=== PATIENT | male | born 1950 | race Caucasian/White ===

== ENCOUNTER 2017-08-04 18:37 | Observation (INO) ==
[2017-08-04 21:17] LABS: Basophils # 0.1 K/mcL (0.0-0.2); Basophils % 0.9 %; Eosinophils # 0.3 K/mcL (0.0-0.6); Eosinophils % 3.3 %; Hematocrit 41.9 % (37.5-50.1); Hemoglobin 14.3 g/dL (12.9-16.9); Immature Granulocytes % 0.6 % (0-4); Lymphocytes # 2.9 K/mcL (0.6-4.6); Lymphocytes % 33.9 %; Mean Corpuscular HGB Conc 34.1 g/dL (31.6-35.5); Mean Corpuscular Volume 87.8 fL (83.0-100.0); Mean Platelet Volume 9.6 fL (9.4-12.4); Monocytes # 0.7 K/mcL (0.0-1.3); Monocytes % 7.6 %; Neutrophils # 4.6 K/mcL (1.6-8.9); Platelet Count 184 K/mcL (140-400); Red Blood Count 4.77 M/mcL (4.19-5.50); Red Cell Distribution Width 13.2 % (11.5-14.5); Segmented Neutrophils % 53.7 %
[2017-08-04 21:30] LABS: BUN/Creatinine Ratio 15 (6-26); Blood Urea Nitrogen 13 mg/dL (8-26); Calcium 9.3 mg/dL (8.6-10.8); Carbon Dioxide 25 mEq/L (19-29); Chloride 106 mEq/L (98-109); Glucose 105 mg/dL (70-99); Osmolality,Calculated 286 (280-300); Potassium 4.4 mEq/L (3.5-4.5); Sodium 138 mEq/L (136-145); eGFR For African Americans > 60 (> 60); eGFR For Non-African Americans > 60 (> 60)
--- NOTE | 2017-08-04 22:27 | Emergency Department Note ---
Disposition Clinical Impression: GI bleeding Qualifiers: GI bleed type/associated pathology: unspecified gastrointestinal hemorrhage type Qualified Code(s): K92.2 - Gastrointestinal hemorrhage, unspecified Disposition: Admitted As Inpatient Condition: Good Time of Disposition: 22:29 General Adult HPI - General Chief complaint: ED GI Bleed Stated complaint: rectal bleeding Time Seen by Provider: 08/04/17 21:04 Source: patient Mode of arrival: ambulatory Limitations: no limitations Nursing Notes Reviewed: Yes Vital Signs Reviewed: Yes - History of Present Illness HPI Narrative: 67-year-old male presenting to the emergency department with chief complaint 3 episodes of bloody bowel movements. Patient states he also is feeling slightly weak and lightheaded earlier. Patient denies passing out or having any chest pain or shortness breath. Patient had a colonoscopy yesterday by Dr. Garcia and had a polyp removed. He states he called the physician's office earlier today and stated he had one episode of a bloody bowel movement. He was told if he had any more episodes that come to the emergency department. Patient denies having any other medical history. Patient denies any abdominal pain. Pain Scale: 0 - Related Data Home Medications Medication Instructions Recorded Confirmed Artichoke Leaves 500 mg PO DAILY 08/04/17 08/04/17 Ascorbate Calcium [Vitamin C] 2,000 mg PO DAILY 08/04/17 08/04/17 Aspirin [Lo-Dose Aspirin EC] 81 mg PO DAILY 08/04/17 08/04/17 Bilberry Fruit Extract [Bilberry] 60 mg PO DAILY 08/04/17 08/04/17 C/Sourcherry/Celery/Grape Seed 500 mg PO DAILY 08/04/17 08/04/17 [Tart Lujan Capsule] Cholecalciferol (Vitamin D3) 1,000 unit PO DAILY 08/04/17 08/04/17 [Vitamin D] Cinnamon Bark [Cinnamon] 375 mg PO DAILY 08/04/17 08/04/17 Fexofenadine HCl [Allergy Relief] 180 mg PO DAILY 08/04/17 08/04/17 Fish Oil/Dha/Epa [Fish Oil 1,200 1,200 mg PO DAILY 08/04/17 08/04/17 mg Fish Oil] Garlic 3,000 mg PO DAILY 08/04/17 08/04/17 Glucosamine/Chondro Mckeon A 1 tab PO DAILY 08/04/17 08/04/17 [Glucosamine-Chondroit Cplt] Grape Seed Xt/Bioflavon,[place] 50 mg PO DAILY 08/04/17 08/04/17 [Grape Seed 50 mg Capsule] Lactobacillus Acidophilus 1 mg PO DAILY 08/04/17 08/04/17 [Acidophilus Probiotic] Methylsulfonylmethane [MSM] 500 mg PO DAILY 08/04/17 08/04/17 Milk Thistle 250 mg PO DAILY 08/04/17 08/04/17 Niacin [Plain Niacin] 500 mg PO DAILY 08/04/17 08/04/17 Plant Stanol Ladonna [Cholest Off] 900 mg PO DAILY 08/04/17 08/04/17 Prasterone (Dhea) [Dhea] 25 mg PO DAILY 08/04/17 08/04/17 Ranitidine HCl [Acid Motor Mechanic] 75 mg PO DAILY 08/04/17 08/04/17 Turmeric Root Extract [Turmeric] 720 mg PO DAILY 08/04/17 08/04/17 Ubidecarenone [Coq10] 30 mg PO DAILY 08/04/17 08/04/17 Vitamin E 400 unit PO DAILY 08/04/17 08/04/17 Allergies Allergy/AdvReac Type Severity Reaction Status Date / Time No Known Allergies Allergy Verified 08/04/17 22:21 All systems ED: reviewed and negative except as stated. Constitutional: Denies: fever, chills Eyes: Reports: as per HPI ENT ED: Reports: as per HPI Cardiovascular: Denies: chest pain, palpitations Respiratory: Denies: cough, dyspnea, wheezes Gastrointestinal: Denies: abdominal pain, nausea, vomiting Genitourinary: Reports: as per HPI Musculoskeletal: Reports: as per HPI Integumentary: Denies: rash, abrasion Neurological: Reports: weakness. Denies: numbness, paresthesias Psychiatric: Reports: as per HPI Endocrine: Reports: as per HPI Hematological/Lymphatic: Reports: as per HPI Allergic/Immunologic: Reports: as per HPI Past Medical History - Past Medical History Attestation: Yes The following information was validated with the patient. Medical history: Reports: cancer, hyperlipidemia Surgical history: Reports: appendectomy Psychiatric history: Reports: no psych history - Social History Smoking Status: Never smoker Alcohol use: Reports: none Drug use: Reports: none Physical Exam - General Limitations: no limitations General appearance: alert, in no apparent distress - Head Head exam: atraumatic, normocephalic, normal inspection - Eye Eye exam: Present: normal appearance. Absent: scleral icterus, conjunctival injection - Chest Chest inspection: Present: normal inspection, symmetric chest wall rise. Absent : tenderness, rash - Respiratory Respiratory exam: Present: normal lung sounds bilaterally. Absent: respiratory distress, wheezes - Cardiovascular Cardiovascular exam: Present: regular rate, normal rhythm, normal heart sounds - Abdominal Exam Abdominal exam: Present: soft, Non-Tender, normal bowel sounds. Absent: distention, guarding, rebound, rigidity, Saini's sign, Rovsing's sign, tenderness at McBurney's Point - Rectal Exam Paraprofessional Education Assistant present during exam: Yes Rectal exam: Present: normal inspection, heme (+) stool, bloody stool, hemorrhoids - Extremities Exam Extremities exam: Present: normal inspection, full ROM - Neurological Exam Neurological exam: Present: alert, oriented X3 - Psychiatric Psychiatric exam: Present: normal affect, normal mood - Skin Skin exam: Present: warm, intact Course Course Narrative: 67-year-old male presenting to the emergency Department chief complaint of bloody bowel movements. Patient has had a colonoscopy and polyp removed the other day. We will obtain basic lab work including CBC, BMP and a type and screen. We will also do a bedside swallow test. Disposition pending these results. Patient's alert and oriented 3 in the room with stable vital signs. He agrees with this plan. - Reevaluation(s) Reevaluation #1: Patient's bedside stool, positive. Hemoglobin stable and shows no signs of anemia. Vital signs are stable at this time. I spoke with Dr. garcia who completed the colonoscopy and polyp removal and he would like us to admit the patient to his service at this time. Patient agrees with this plan. He is alert and oriented 3. Vital Signs Temperature 98.1 F 08/04/17 18:47 Pulse Rate 78 08/04/17 18:47 Respiratory Rate 18 08/04/17 18:47 Blood Pressure 128/78 08/04/17 18:47 O2 Sat by Pulse Oximetry 98 08/04/17 18:47 Temperature 98.4 F 08/05/17 10:31 Pulse Rate 74 08/05/17 10:31 Respiratory Rate 16 08/05/17 10:31 Blood Pressure 143/81 08/05/17 10:31 O2 Sat by Pulse Oximetry 95 08/05/17 10:31 Oxygen Delivery Oxygen Delivery Room Air Medical Decision Making - Lab Data Lab results reviewed: Yes I reviewed the patient's lab results. Result diagrams: 08/05/17 04:05 08/04/17 21:07 Lab Results 08/04/17 08/04/17 08/04/17 Range/Units 21:07 21:07 21:07 WBC 8.6 (4.3-11.1) K/mcL RBC 4.77 (4.19-5.50) M/mcL Hgb 14.3 (12.9-16.9) g/dL Hct 41.9 (37.5-50.1) % MCV 87.8 (83.0-100.0) fL MCH 30.0 (28.0-33.3) pg MCHC 34.1 (31.6-35.5) g/dL RDW 13.2 (11.5-14.5) % Plt Count 184 (140-400) K/mcL MPV 9.6 (9.4-12.4) fL Immature Gran % 0.6 (0-4) % Seg Neutrophils % 53.7 % Lymphocytes % 33.9 % Monocytes % 7.6 % Eosinophils % 3.3 % Basophils % 0.9 % Neutrophils # 4.6 (1.6-8.9) K/mcL Lymphocytes # 2.9 (0.6-4.6) K/mcL Monocytes # 0.7 (0.0-1.3) K/mcL Eosinophils # 0.3 (0.0-0.6) K/mcL Basophils # 0.1 (0.0-0.2) K/mcL Sodium 138 (136-145) mEq/L Potassium 4.4 (3.5-4.5) mEq/L Chloride 106 (98-109) mEq/L Carbon Dioxide 25 (19-29) mEq/L BUN 13 (8-26) mg/dL Creatinine 0.88 (0.72-1.25) mg/dL Est GFR ( Amer) > 60 (> 60) Est GFR (Non-Af Amer) > 60 (> 60) BUN/Creatinine Ratio 15 (6-26) Glucose 105 H (70-99) mg/dL Calculated Osmolality 286 (280-300) Calcium 9.3 (8.6-10.8) mg/dL Blood Type A NEGATIVE Antibody Screen NEGATIVE Attestation Statement - Attestation Attestation: I examined this patient and my medical decision-making was reviewed with the Resident Physician, Dr. Sandoval. I agree with the documented findings, disposition and treatment plan as described except to the extent set forth below. This 67-year-old white male who presents to the emergency department brought by his spouse today for rectal bleeding which began approximately 4 hours ago. Patient is status post elective colonoscopy that was performed by Dr. garcia yesterday which involved a polypectomy. Patient was instructed if he had any rectal bleeding following the procedure to return and be evaluated in the emergency department. Patient states he has been feeling a little lightheaded with some generalized weakness today and began noticing bright red blood per rectum approximately 2:30 this afternoon. Patient arrives with stable vital signs and has no other complaints today no chest pain or pressure no shortness of breath no diaphoresis no fevers or chills no excessive rectal pain or pressure sensation no abdominal pain nausea vomiting or bowel changes. I agree with patient's physical exam findings as documented. Vital signs are stable and he is in no acute distress on arrival. Patient was cardiacmonitorandcontinuouspulseoxIVsalinewasestablishedandlabsweredrawnandsenti ncludingtypeandscreen.On exam, patient had bright red blood per rectum grossly as well as Hemoccult positive. Patient had no rectal pain during exam. Patient's laboratory evaluations were within normal limits with a stable H&H. We called Dr. garcia and he requested that we admit the patient to his service and he will see the patient. Patient remains hemodynamically stable at this time, vital signs remained stable and he is not having any active bleeding at this time.
[2017-08-04] MEDS ORDERED: Acetaminophen 325 MG TABLET PO PRN (23:42)
[2017-08-05 04:32] LABS: Basophils # 0.1 K/mcL (0.0-0.2); Basophils % 0.7 %; Eosinophils # 0.2 K/mcL (0.0-0.6); Eosinophils % 2.8 %; Hematocrit 37.2 % (37.5-50.1); Hemoglobin 12.9 g/dL (12.9-16.9); Immature Granulocytes % 0.4 % (0-4); Lymphocytes # 2.2 K/mcL (0.6-4.6); Lymphocytes % 32.2 %; Mean Corpuscular HGB Conc 34.7 g/dL (31.6-35.5); Mean Corpuscular Hemoglobin 30.2 pg (28.0-33.3); Mean Corpuscular Volume 87.1 fL (83.0-100.0); Mean Platelet Volume 9.9 fL (9.4-12.4); Monocytes # 0.5 K/mcL (0.0-1.3); Neutrophils # 3.8 K/mcL (1.6-8.9); Platelet Count 165 K/mcL (140-400); Red Blood Count 4.27 M/mcL (4.19-5.50); Red Cell Distribution Width 13.3 % (11.5-14.5); Segmented Neutrophils % 55.9 %
[2017-08-05] MEDS ORDERED: Famotidine 20 MG TABLET PO SCH ×4 (07:30→09:30)
[2017-08-05 10:36] VITALS: BP 143/81
--- NOTE | 2017-08-05 11:29 | General Surg History&Physical ---
Date of Encounter: 08/05/17 Time of Encounter: 11:30 History of Present Illness Chief complaint: rectal bleeding HPI: Mr. Montemayor is a 67 year old male, patient of Dr Pepe Cano, s/p screening colonoscopy 08/03/2017. A small polyp was removed from the cecum using cautery forceps. The patient tolerated the procedure well was discharged home in stable condition. Yesterday, 08/04/17, the patient noticed blood mixed in with his stool. No clots were described. Patient indicated a sensation of feeling "woozy" but his blood pressure was stable. He had several more bloody bowel movements prompting him to present to [facility] ED for further evaluation and treatment. The patient was hemodynamically stable, BP 128/78, pulse 78, respirations 18. He appeared to be in no acute distress and hemoglobin hematocrit were normal at 14.3 and 41.9. Differential was unremarkable. The patient patient was admitted for overnight observation and monitoring. 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; hypercholesterolemia Surgical history: Appendectomy in 1977; anoscopy 08/03/17; prior to that 15 years ago Allergies: No known drug allergies Medications: Ranitidine 75 mg by mouth daily Serene allergy 180 mg by mouth daily The ER record also indicates: Artichoke leaves 500 mg by mouth daily Ascorbic calcium 2000 mg by mouth daily Aspirin 81 mg by mouth daily Bilberry fruit extract 60 mg by mouth daily C/solitary/celery/grape seed thousand units by mouth daily Cinnamon 375 mg by mouth daily [place]-3 fish oil 1200 mg by mouth daily Garlic 3000 mg by mouth daily Glucosamine chondroitin 1 tablet daily Grape seed extract with bioflavonoid 50 mg by mouth daily Lactobacillus acidophilus 1 mg by mouth daily Methylsulfonylmethane 500 mg by mouth daily Milk thistle 250 mg by mouth daily Niacin 500 mg by mouth daily Plant Stanol [place] 900 milligrams by mouth daily Prasterone 25 mg by mouth daily Tumeric root extract 720 mg by mouth daily CoQ10 30 mg by mouth daily Vitamin E 400 units by mouth daily Physical examination: Age-appropriate male in no acute distress. Afebrile, vital signs stable with blood pressure 143/81, pulse 74, respirations 16 skin: Warm, no obvious jaundice Lungs: Clear Cardiac: Regular rate, no appreciable murmurs, no tachycardia Abdomen: Soft nontender Stool: Brown with blood streaking Extremities: No obvious clubbing cyanosis or edema. Repeat labs: White count 6.7, hemoglobin 12.9, hematocrit 37.2. Differential remains within normal limits. Impression: Post colonoscopy with polypectomy rectal bleeding. Status stable; hemodynamically stable It does not appear that the patient will require any intervention. Plan: With stability overnight, discharged home Patient instructed to contact me telephonically should his status change or worsening rectal bleeding be detected Past Med Surg Social Fam HX - Past Medical History Medical history: cancer, hyperlipidemia Psychiatric history: no psych history - Past Surgical History Surgical History: appendectomy, cancer surgery - Social History Smoking Status: Never smoker Alcohol use: none Drug use: none Medications and Allergies Artichoke Leaves 500 mg PO DAILY 08/04/17 [History] Ascorbate Calcium [Vitamin C] 2,000 mg PO DAILY 08/04/17 [History] Aspirin [Lo-Dose Aspirin EC] 81 mg PO DAILY 08/04/17 [History] Bilberry Fruit Extract [Bilberry] 60 mg PO DAILY 08/04/17 [History] C/Sourcherry/Celery/Grape Seed [Tart Lujan Capsule] 500 mg PO DAILY 08/04/17 [ History] Cholecalciferol (Vitamin D3) [Vitamin D] 1,000 unit PO DAILY 08/04/17 [History] Cinnamon Bark [Cinnamon] 375 mg PO DAILY 08/04/17 [History] Fexofenadine HCl [Allergy Relief] 180 mg PO DAILY 08/04/17 [History] Fish Oil/Dha/Epa [Fish Oil 1,200 mg Fish Oil] 1,200 mg PO DAILY 08/04/17 [ History] Garlic 3,000 mg PO DAILY 08/04/17 [History] Glucosamine/Chondro Mckeon A [Glucosamine-Chondroit Cplt] 1 tab PO DAILY 08/04/17 [ History] Grape Seed Xt/Bioflavon,[place] [Grape Seed 50 mg Capsule] 50 mg PO DAILY [History] Lactobacillus Acidophilus [Acidophilus Probiotic] 1 mg PO DAILY 08/04/17 [ History] Methylsulfonylmethane [MSM] 500 mg PO DAILY 08/04/17 [History] Milk Thistle 250 mg PO DAILY 08/04/17 [History] Niacin [Plain Niacin] 500 mg PO DAILY 08/04/17 [History] Plant Stanol Ladonna [Cholest Off] 900 mg PO DAILY 08/04/17 [History] Prasterone (Dhea) [Dhea] 25 mg PO DAILY 08/04/17 [History] Ranitidine HCl [Acid Brim Stretcher] 75 mg PO DAILY 08/04/17 [History] Turmeric Root Extract [Turmeric] 720 mg PO DAILY 08/04/17 [History] Ubidecarenone [Coq10] 30 mg PO DAILY 08/04/17 [History] Vitamin E 400 unit PO DAILY 08/04/17 [History] 3 Allergy/AdvReac Type Severity Reaction Status Date / Time No Known Allergies Allergy Verified 08/04/17 22:21 Review of Systems All systems PM: A 10-system review of systems was performed and is negative for pertinent findings except as documented above in the HPI. General Surgery Exam Initial Vital Signs Temp Pulse Resp BP Pulse Ox 98.1 F 78 18 128/78 98 08/04/17 18:47 08/04/17 18:47 08/04/17 18:47 08/04/17 18:47 08/04/17 18:47 Results - Labs 08/05/17 04:05 08/04/17 21:07 Abnormal lab results Hct 37.2 % (37.5-50.1) L 08/05/17 04:05 Glucose 105 mg/dL (70-99) H 08/04/17 21:07 All other labs normal. - VTE Reasons for not Prescribing Prophylaxis: Medical contraindication
== END 2017-08-05 12:56 | disposition home or self-care (01) ==
LOC: 3ANU 18:37 → EMEROO 18:37 → 3ANU 23:00
PROVIDERS: ADMIT Surgery; ATTEND Surgery

== ENCOUNTER 2021-02-11 17:57 | Inpatient (IN) ==
[2021-02-11 19:26] LABS: Basophils % 0.2 %; Hematocrit 43.4 % (37.5-50.1); Hemoglobin 14.2 g/dL (12.9-16.9); Lymphocytes # 0.9 K/mcL (0.6-4.6); Lymphocytes % 8.6 %; Mean Corpuscular HGB Conc 32.7 g/dL (31.6-35.5); Mean Corpuscular Hemoglobin 28.3 pg (28.0-33.3); Mean Corpuscular Volume 86.6 fL (83.0-100.0); Mean Platelet Volume 9.6 fL (9.4-12.4); Monocytes # 0.5 K/mcL (0.0-1.3); Monocytes % 5.1 %; Neutrophils # 8.8 K/mcL (1.6-8.9); Platelet Count 249 K/mcL (140-400); Red Blood Count 5.01 M/mcL (4.19-5.50); Red Cell Distribution Width 13.7 % (11.5-14.5); Segmented Neutrophils % 85.1 %; White Blood Count 10.4 K/mcL (4.3-11.1)
[2021-02-11 19:37] LABS: Fibrinogen 672 mg/dL (169-393)
[2021-02-11 19:38] LABS: D-Dimer 1783 ng/mLFEU (0-500)
[2021-02-11 19:53] LABS: Alanine Aminotransferase 19 Units/L (7-52); Albumin 3.6 g/dL (3.5-5.7); Albumin/Globulin Ratio 1.1 (1.1-2.2); Alkaline Phosphatase 60 Units/L (34-104); Aspartate Amino Transferase 27 Units/L (13-39); BUN/Creatinine Ratio 22 (6-26); Bilirubin,Total 0.5 mg/dL (0.3-1.0); Blood Urea Nitrogen 19 mg/dL (8-23); Calcium 9.3 mg/dL (8.6-10.3); Carbon Dioxide 24 mEq/L (23-29); Chloride 104 mEq/L (98-107); Globulin 3.4 g/dL (2.4-3.5); Glucose 146 mg/dL (70-105); Osmolality,Calculated 289 (280-300); Potassium 4.2 mEq/L (3.5-5.1); Sodium 137 mEq/L (136-145); Troponin I < 0.03 ng/mL (< 0.04); eGFR For African Americans > 60 (> 60); eGFR For Non-African Americans > 60 (> 60)
[2021-02-11] MEDS ORDERED: Isovue-370 500 ML BOTTLE IVP ONE (20:30)
[2021-02-11] MEDS ORDERED: Acetaminophen 325 MG TABLET PO PRN (21:36)
[2021-02-11] MEDS ORDERED: Melatonin 3 MG TABLET PO PRN (21:36)
[2021-02-11] MEDS ORDERED: Naloxone 0.4 MG/ML INJ IVP PRN (21:36)
[2021-02-11] MEDS ORDERED: Ondansetron 4 MG/2 ML VIAL IVP PRN (21:36)
[2021-02-11] MEDS ORDERED: amLODIPine 5 MG TABLET PO ONE (21:44)
[2021-02-11] MEDS ORDERED: *HR* Labetalol 20 MG/4 ML SYRINGE IVP ONE (21:44)
[2021-02-12 01:39] LABS: Basophils % 0.1 %; Hematocrit 40.6 % (37.5-50.1); Hemoglobin 13.5 g/dL (12.9-16.9); Immature Granulocytes % 0.8 % (0-4); Lymphocytes # 0.7 K/mcL (0.6-4.6); Lymphocytes % 7.8 %; Mean Corpuscular HGB Conc 33.3 g/dL (31.6-35.5); Mean Corpuscular Hemoglobin 28.7 pg (28.0-33.3); Mean Corpuscular Volume 86.4 fL (83.0-100.0); Mean Platelet Volume 9.8 fL (9.4-12.4); Monocytes # 0.2 K/mcL (0.0-1.3); Monocytes % 2.7 %; Neutrophils # 7.4 K/mcL (1.6-8.9); Platelet Count 237 K/mcL (140-400); Red Cell Distribution Width 13.7 % (11.5-14.5); Segmented Neutrophils % 88.6 %; White Blood Count 8.3 K/mcL (4.3-11.1)
[2021-02-12 01:50] LABS: INR 1.1; Prothrombin Time 12.7 Seconds (9.4-12.1)
[2021-02-12 01:51] LABS: BUN/Creatinine Ratio 29 (6-26); Blood Urea Nitrogen 20 mg/dL (8-23); Calcium 8.9 mg/dL (8.6-10.3); Carbon Dioxide 23 mEq/L (23-29); Chloride 104 mEq/L (98-107); Glucose 170 mg/dL (70-105); Magnesium 1.8 mg/dL (1.6-2.6); Osmolality,Calculated 287 (280-300); Potassium 4.5 mEq/L (3.5-5.1); Sodium 135 mEq/L (136-145); eGFR For African Americans > 60 (> 60); eGFR For Non-African Americans > 60 (> 60)
[2021-02-12 01:53] LABS: C-Reactive Protein 100 mg/L (Less than 10); Lactate Dehydrogenase 295 Units/L (140-271)
[2021-02-12 02:12] LABS: Ferritin 532 ng/mL (20-250)
[2021-02-12] MEDS: *HR* Enoxaparin 40 MG/0.4 ML SYRINGE SQ SCH (06:22)
[2021-02-12] MEDS: Dexamethasone Sodium Phos/PF 10 MG/ML VIAL IVP SCH (08:51)
[2021-02-12] MEDS: amLODIPine 5 MG TABLET PO SCH (08:51)
[2021-02-12] MEDS ORDERED: EPA PO SCH (09:00)
[2021-02-12] MEDS ORDERED: Loratadine 10 MG TABLET PO SCH (09:00)
[2021-02-12] MEDS ORDERED: FISH OIL PO SCH (09:00)
[2021-02-12] MEDS ORDERED: DHA PO SCH (09:00)
[2021-02-12] MEDS ORDERED: Aspirin Enteric Coated 81 MG Tablet PO SCH (09:00)
[2021-02-12] MEDS ORDERED: hydrOXYzine pamoate 25 MG CAPSULE PO PRN (17:16)
[2021-02-12] MEDS ORDERED: Saline Nasal Spray 44 ML BOTTLE NS PRN (23:12)
[2021-02-13] MEDS: *HR* Enoxaparin 40 MG/0.4 ML SYRINGE SQ SCH (05:45)
[2021-02-13] MEDS: amLODIPine 5 MG TABLET PO SCH (08:57)
[2021-02-13] MEDS: Dexamethasone Sodium Phos/PF 10 MG/ML VIAL IVP SCH (08:57)
[2021-02-14 03:10] LABS: INR 1.1; Prothrombin Time 12.8 Seconds (9.4-12.1)
[2021-02-14 03:18] LABS: BUN/Creatinine Ratio 30 (6-26); Blood Urea Nitrogen 25 mg/dL (8-23); C-Reactive Protein 47 mg/L (Less than 10); Calcium 9.1 mg/dL (8.6-10.3); Carbon Dioxide 25 mEq/L (23-29); Chloride 102 mEq/L (98-107); Glucose 115 mg/dL (70-105); Osmolality,Calculated 285 (280-300); Potassium 4.4 mEq/L (3.5-5.1); Sodium 135 mEq/L (136-145); eGFR For African Americans > 60 (> 60); eGFR For Non-African Americans > 60 (> 60)
[2021-02-14] MEDS: *HR* Enoxaparin 40 MG/0.4 ML SYRINGE SQ SCH (06:29)
[2021-02-14] MEDS: Dexamethasone Sodium Phos/PF 10 MG/ML VIAL IVP SCH (10:06)
[2021-02-15] MEDS: *HR* Enoxaparin 40 MG/0.4 ML SYRINGE SQ SCH (06:08)
[2021-02-15] MEDS: Dexamethasone Sodium Phos/PF 10 MG/ML VIAL IVP SCH (08:49)
[2021-02-15] MEDS: Furosemide 20 MG/2 ML VIAL IVP SCH (12:08)
[2021-02-16] MEDS: *HR* Enoxaparin 40 MG/0.4 ML SYRINGE SQ SCH (05:14)
[2021-02-16] MEDS: Dexamethasone Sodium Phos/PF 10 MG/ML VIAL IVP SCH (09:10)
[2021-02-16] MEDS: Furosemide 20 MG/2 ML VIAL IVP SCH (09:18)
[2021-02-16] MEDS ORDERED: Dexamethasone Sodium Phos/PF 10 MG/ML VIAL IVP ONE (11:23)
[2021-02-17 02:15] LABS: Hematocrit 43.8 % (37.5-50.1); Hemoglobin 14.8 g/dL (12.9-16.9); Mean Corpuscular HGB Conc 33.8 g/dL (31.6-35.5); Mean Corpuscular Hemoglobin 28.8 pg (28.0-33.3); Mean Corpuscular Volume 85.4 fL (83.0-100.0); Mean Platelet Volume 9.9 fL (9.4-12.4); Platelet Count 298 K/mcL (140-400); Red Blood Count 5.13 M/mcL (4.19-5.50); Red Cell Distribution Width 12.8 % (11.5-14.5); White Blood Count 10.3 K/mcL (4.3-11.1)
[2021-02-17 02:19] LABS: VBG HCO3 26 mEq/L (21-27); VBG PCO2 33 mmHg (41-51); VBG PH 7.51 pH Units (7.32-7.42); VBG PO2 127 mmHg (25-50)
[2021-02-17 02:22] LABS: INR 1.2; Prothrombin Time 13.9 Seconds (9.4-12.1)
[2021-02-17 02:35] LABS: BUN/Creatinine Ratio 38 (6-26); Blood Urea Nitrogen 29 mg/dL (8-23); Calcium 9.3 mg/dL (8.6-10.3); Carbon Dioxide 24 mEq/L (23-29); Chloride 98 mEq/L (98-107); Glucose 162 mg/dL (70-105); Osmolality,Calculated 279 (280-300); Potassium 4.6 mEq/L (3.5-5.1); Sodium 130 mEq/L (136-145); eGFR For African Americans > 60 (> 60); eGFR For Non-African Americans > 60 (> 60)
[2021-02-17] MEDS: *HR* Enoxaparin 40 MG/0.4 ML SYRINGE SQ SCH ×2 (06:17→16:35)
[2021-02-17] MEDS ORDERED: Isovue-370 500 ML BOTTLE IVP ONE (07:25)
[2021-02-17] MEDS: Dexamethasone Sodium Phos/PF 10 MG/ML VIAL IVP SCH (08:17)
[2021-02-17] MEDS: Furosemide 20 MG/2 ML VIAL IVP SCH (08:24)
[2021-02-17] MEDS: Cholecalciferol (D-3) 1,000 UNIT (25MCG) TABLET PO SCH (11:39)
[2021-02-18] MEDS: *HR* Enoxaparin 40 MG/0.4 ML SYRINGE SQ SCH ×2 (05:21→16:50)
[2021-02-18] MEDS: Cholecalciferol (D-3) 1,000 UNIT (25MCG) TABLET PO SCH (09:54)
[2021-02-18] MEDS: Dexamethasone Sodium Phos/PF 10 MG/ML VIAL IVP SCH (09:55)
[2021-02-19 03:01] LABS: Hematocrit 41.3 % (37.5-50.1); Hemoglobin 14.2 g/dL (12.9-16.9); Mean Corpuscular HGB Conc 34.4 g/dL (31.6-35.5); Mean Corpuscular Hemoglobin 29.3 pg (28.0-33.3); Mean Corpuscular Volume 85.2 fL (83.0-100.0); Mean Platelet Volume 9.4 fL (9.4-12.4); Platelet Count 297 K/mcL (140-400); Red Blood Count 4.85 M/mcL (4.19-5.50); Red Cell Distribution Width 12.9 % (11.5-14.5); White Blood Count 11.3 K/mcL (4.3-11.1)
[2021-02-19 03:33] LABS: BUN/Creatinine Ratio 35 (6-26); Blood Urea Nitrogen 29 mg/dL (8-23); Calcium 9.2 mg/dL (8.6-10.3); Carbon Dioxide 24 mEq/L (23-29); Chloride 101 mEq/L (98-107); Glucose 151 mg/dL (70-105); Osmolality,Calculated 283 (280-300); Potassium 4.5 mEq/L (3.5-5.1); Sodium 132 mEq/L (136-145); eGFR For African Americans > 60 (> 60); eGFR For Non-African Americans > 60 (> 60)
[2021-02-19 03:53] LABS: Troponin I < 0.03 ng/mL (< 0.04)
[2021-02-19] MEDS: *HR* Enoxaparin 40 MG/0.4 ML SYRINGE SQ SCH ×2 (06:50→17:58)
[2021-02-19] MEDS: Loratadine 10 MG TABLET PO SCH (10:18)
[2021-02-19] MEDS: Cholecalciferol (D-3) 1,000 UNIT (25MCG) TABLET PO SCH (10:18)
[2021-02-19] MEDS: Dexamethasone Sodium Phos/PF 10 MG/ML VIAL IVP SCH ×2 (10:18→10:24)
[2021-02-19] MEDS: Ipratropium 1 PUFF INHALER IH SCH ×3 (10:59→21:52)
[2021-02-20 02:04] LABS: Basophils % 0.4 %; Eosinophils % 0.1 %; Hematocrit 40.2 % (37.5-50.1); Immature Granulocytes % 3.4 % (0-4); Lymphocytes # 1.3 K/mcL (0.6-4.6); Mean Corpuscular HGB Conc 34.8 g/dL (31.6-35.5); Mean Corpuscular Hemoglobin 30.1 pg (28.0-33.3); Mean Corpuscular Volume 86.5 fL (83.0-100.0); Mean Platelet Volume 9.5 fL (9.4-12.4); Monocytes # 0.8 K/mcL (0.0-1.3); Monocytes % 7.9 %; Neutrophils # 7.3 K/mcL (1.6-8.9); Platelet Count 231 K/mcL (140-400); Red Blood Count 4.65 M/mcL (4.19-5.50); Segmented Neutrophils % 75.2 %; White Blood Count 9.7 K/mcL (4.3-11.1)
[2021-02-20 02:20] LABS: BUN/Creatinine Ratio 32 (6-26); Blood Urea Nitrogen 25 mg/dL (8-23); Calcium 8.9 mg/dL (8.6-10.3); Carbon Dioxide 22 mEq/L (23-29); Chloride 101 mEq/L (98-107); Glucose 161 mg/dL (70-105); Magnesium 2.1 mg/dL (1.6-2.6); Osmolality,Calculated 278 (280-300); Sodium 130 mEq/L (136-145); eGFR For African Americans > 60 (> 60); eGFR For Non-African Americans > 60 (> 60)
[2021-02-20] MEDS: Ipratropium 1 PUFF INHALER IH SCH ×2 (03:53→10:07)
[2021-02-20] MEDS: *HR* Enoxaparin 40 MG/0.4 ML SYRINGE SQ SCH (05:34)
[2021-02-20 06:47] VITALS: BP 131/68
[2021-02-20] MEDS ORDERED: Cholecalciferol (D-3) 1,000 UNIT (25MCG) TABLET PO SCH (09:00)
[2021-02-20] MEDS: Loratadine 10 MG TABLET PO SCH (10:29)
[2021-02-21] MEDS ORDERED: Dexamethasone Sodium Phos/PF 10 MG/ML VIAL IVP SCH (09:00)
== END 2021-02-20 12:20 | disposition home or self-care (01) | DRG 177 ==
LOC: EMEROOARM 17:57 → 2NENU 17:57 → SUATTDRO 20:52 → 2NENU 20:56 → SUATTDRO 02-12 07:53
PROVIDERS: ADMIT Internal Medicine; ATTEND Pharmacist